=== PATIENT | female | born 1985 | race Caucasian/White ===

== ENCOUNTER 2016-07-15 05:59 | Day surgery (SDC) | payer MEDICAID ==
[~2016-07-15] VITALS: Ht 157.5 cm; Wt 59.0 kg
[2016-07-15] VITALS (10 sets, daily range): BP systolic 84–104; BP diastolic 43–57; PULSE 68–89; RESP 14–18; TEMP 98.3; Ht 157.5 cm; Wt 59.0 kg
[2016-07-15] MEDS ORDERED: CEFAZOLIN 1 GM INJ ONE (07:00)
[2016-07-15] MEDS ORDERED: ROCURONIUM 50 MG INJ ONE (07:00)
[2016-07-15 07:38] LABS: ADD UMIC YES; URINE BILIRUBIN (Dip) NEGATIVE (NEGATIVE); URINE BLOOD (Dip) 2+ (NEGATIVE); URINE COLOR LT. YELLOW (YELLOW); URINE GLUCOSE (Dip) NEGATIVE (NEGATIVE); URINE KETONES (Dip) NEGATIVE (NEGATIVE); URINE LEUKOCYTE ESTERASE (Dip) NEGATIVE (NEGATIVE); URINE NITRITE (Dip) NEGATIVE (NEGATIVE); URINE TOTAL PROTEIN (Dip) TRACE (NEGATIVE); URINE UROBILINOGEN (Dip) 0.2 E.U./dL (0.1-1.0)
[2016-07-15 07:48] LABS: ALBUMIN 4.6 g/dl (3.3-4.9)
[2016-07-15 07:49] LABS: POTASSIUM 4.1 mmol/L (3.5-5.1)
[2016-07-15 07:51] LABS: ALBUMIN/GLOBULIN RATIO 1.09; BASOPHILS % 0.4 % (0.0-2.0); BILIRUBIN,INDIRECT 0.6 mg/dl (0-1.1); BILIRUBIN,TOTAL 0.6 mg/dl (0.2-1.3); CREATININE 0.51 mg/dl (0.44-1.00); EOSINOPHILS % 0.4 % (0.0-7.0); HEMATOCRIT 40.7 % (37.0-47.0); HEMOGLOBIN 13.9 g/dl (12.0-16.0); LYMPHOCYTES # 1.8 10^3/ul (0.8-2.9); LYMPHOCYTES % 16.4 % (15.0-51.0); MEAN CORPUSCULAR HEMOGLOBIN 30.8 pg (29.0-33.0); MEAN CORPUSCULAR HGB CONC 34.2 g/dl (32.0-37.0); MEAN PLATELET VOLUME 8.6 fl (7.4-10.4); MONOCYTE # 0.4 10^3/ul (0.3-0.9); MONOCYTES % 4.1 % (0.0-11.0); NEUTROPHIL # 8.6 10^3/ul (1.6-7.5); NEUTROPHILS % 78.7 % (39.0-77.0); PLATELET COUNT 329 10^3/UL (140-440); RED BLOOD COUNT 4.51 10^6/ul (4.20-5.40); RED CELL DISTRIBUTION WIDTH 13.1 % (11.5-14.5); TOTAL PROTEIN 8.8 g/dl (6.1-8.1)
[2016-07-15 07:52] LABS: CALCIUM 9.3 mg/dl (8.4-10.2); CONDITION 1
[2016-07-15 08:00] LABS: BACTERIA,URINE RARE; URINE RBCS 0-2 /HPF (0)
--- NOTE | 2016-07-15 10:26 | RADRPT ---
PROCEDURE: US Obstetrical 1st Trimester CLINICAL INDICATION: Vaginal bleeding TECHNIQUE: Multiple real-time images were acquired of the patient's maternal abdomen utilizing a curved array transducer. COMPARISON: None FINDINGS: The uterus is normal in size and measures 8.6 cm in sagittal diameter and 5.8 x 5.3 cm in cross diam eter. A 1 cm Nabothian cyst is evident. There is thickening of the endometrium to approximately 3.7 cm. There is an eccentric tiny cyst wit hin the endometrium measuring approximate 2.3 mm in cross diameter. The right ovary measures 2.5 x 2.0 x 1.8 cm. Vascular flow is demonstrated within the right ovary o n Doppler. The left ovary measures 3.7 x 1.7 x 1.6 cm. Vascular flow is demonstrated in the left ovary and Dop pler. Adjacent to the left ovary there is a 1.8 x 1.3 x 1.1 cm There is a trace of free intraperitoneal fluid. IMPRESSION: 1. The uterus is normal in size and the endometrium is quite thickened measuring approximately 3.7 c m in cross diameter. There is a tiny 2.3 mm cyst seen at the edge of the endometrium. 2. Normal-appearing right ovary with vascular flow demonstrated on Doppler. 3. Normal left ovary with vascular flow demonstrated on Doppler. 4. There is a small mass-like structure is seen adjacent to the left ovary measuring 1.8 x 1.3 x 1. 1 cm. 5. There is a trace of free intraperitoneal fluid. 6. Correlation with quantitative serial beta HCG and repeat sonogram in 10 days might be useful to further evaluate as an ectopic cannot be excluded. Findings of possible ectopic were telephoned by William Rod MD to ANNAMARIE Huff on 07/15/2016 at 1025 hours. Physician Isaac Date Time Electronically viewed and signed by Physician Isaac on 07/15/2016 10:25 RH/
--- NOTE | 2016-07-15 10:47 | EN ---
Date/Time of Note Date/Time of Note DATE: 07/15/16 TIME: 10:46 ER Progress Note Case was discussed in detail with the advanced practice provider. Patient was seen independently Diagnostic assessment reviewed. I agree with the assessment and care plan as discussed. MANJINDER STONE Jul 15, 2016 10:47
--- NOTE | 2016-07-15 11:32 | ERD ---
DATE OF SERVICE: 07/15/2016 HISTORY OF PRESENT ILLNESS: The patient is a 31-year-old female coming in complaining of left lower quadrant pain. Patient states it has been going on for 2 days. She took ibuprofen with mild allev iation. She states the pain comes and goes; however, this morning, it felt much worse. She has had no pain with urination or bowel movements. Her last bowel movement was at 5:00 a.m., 6 hours prior to evaluation. She has had no blood and no diarrhea. She is nauseous, but no vomiting. Her last n ormal menstrual period was 06/03/2017. She says the pain is nonradiating and rates it as a 7 out of 10. PAST MEDICAL HISTORY: Denies medical problems. ALLERGIES: DENIES ALLERGIES TO MEDICATIONS. SURGICAL HISTORY: Tubal ligation that was reversed. SOCIAL HISTORY: Denies. REVIEW OF SYSTEMS: A 12-point review of systems was done. Refer to HPI for positives, all other sy stems negative. PHYSICAL EXAMINATION VITAL SIGNS: Temperature is 98.5, pulse 77, blood pressure is 107/60, respiratory rate 18, O2 satur ation 100% on room air. Pain intensity is 7/10. GENERAL: The patient is well-appearing, well-nourished, no acute distress. HEENT: Atraumatic. Conjunctivae are pink. Pupils equal, round, and reactive to light. There is no sc leral icterus. Tympanic membranes clear bilaterally. Oropharynx clear. No nystagmus or photophobia. CHEST: Clear to auscultation bilaterally. There are no rales, wheezes or rhonchi. HEART: Regular rate and rhythm. No murmurs, clicks, rubs or gallops. No S3 or S4. ABDOMEN: Normoactive bowel sounds heard on auscultation. No distention or organomegaly. Patient esquivel s mild tenderness to palpation in the left lower quadrant with mild rebound tenderness. SKIN: There is no apparent rash or petechia. The skin is warm and dry. EMERGENCY ROOM COURSE: The patient had blood work done in the ER. CBC was within normal limits. C MP was within normal limits. Beta quant was 1747. Urine was within normal limits. Patient's blood type is O positive. Obstetric ultrasound showed: 1. Uterus is normal and endometrium is thickened, measuring approximately 3.7 cm in cross diameter. 2. A tiny 2.3 mm cyst in the endometrium. 3. Normal appearing right ovary with vascular flow demonstrated on Doppler. 4. Normal left ovary with vascular flow. 5. Small mass-like structure seen adjacent to the left ovary measuring 1.3 x 1.8 x 1.1 cm. 6. There is a trace of free intraperitoneal fluid. 7. Correlation and quantitative. serial beta hCG and repeat sonogram in 10 days may be useful to fu rther evaluate if ectopic cannot be evaluated. This case was then discussed with the laborist, Dr. Chavez, who came and evaluated the patient at the bedside. The patient was given the option since this was desired to either have surge ry for removal of possible ectopic today or to be admitted for observation and have serial beta hCG and ultrasounds done in the hospital to rule out a possible ectopic. The patient decided t o be admitted for observation and will be under the care of Dr. Chavez for close followup and reev aluation. DIAGNOSES 1. Positive test. 2. Possible ectopic . 3. Left lower quadrant pain. MEDICAL DECISION MAKING: Patient does have pain in the left lower quadrant with a positive pregnanc y test, no obvious seen on vaginal ultrasound. The patient does have a concerning structu re noted within the left adnexa. She will be admitted for observation and close evaluation to ensur e that patient does not have ectopic . The patient was stable at the time of reevaluation and understood the reason for admission. DISPOSITION: Admission to med/surg floor under the care of Dr. Chavez's service for serial hCGs a nd ultrasound. Patient was stable upon transfer. Dictated By: ALL DE LUNA for MANJINDER MUSTAFA/ARNAUD Conf#: [id number] DID#: [id number]
--- NOTE | 2016-07-15 11:42 | ERD ---
DATE OF SERVICE: 07/15/[address] Chavez reevaluated the patient's ultrasound and felt that there was higher concern for an ecto pic . He recommended patient to have OR intervention today to remove ectopic . T his was discussed at bedside with patient. We discussed the risks versus benefits of waiting versus surgical intervention today. Patient decided to have surgery. This was discussed with the surgeon at this patient's bedside. Patient understood and will be admitted to the OR directly from the [facility] r[facility] room. Patient was stable. Dictated By: ALL DE LUNA for MANJINDER MUSTAFA/NTS Conf#: [id number] DID#: [id number]
[2016-07-15] MEDS ORDERED: FENTAnyl 50 MCG/ML VIAL IV PRN ×2 (13:30)
[2016-07-15] MEDS ORDERED: hydrALAzine 20 MG INJ IV PRN (13:30)
[2016-07-15] MEDS ORDERED: EPHEDrine SULFATE 50 MG/5 ML SYG IV PRN (13:30)
[2016-07-15] MEDS ORDERED: LABETALOL HCL 20MG INJ IV PRN (13:30)
[2016-07-15] MEDS ORDERED: MEPERIDINE 25 MG INJ IV PRN (13:30)
[2016-07-15] MEDS ORDERED: HYDROmorphONE (0.2 MG/ML) 10ML SYG IV PRN ×3 (13:30)
[2016-07-15] MEDS ORDERED: ONDANSETRON 4 MG INJ IV PRN (13:30)
[2016-07-15] MEDS ORDERED: PROPOFOL 100 ML ONE (13:36)
[2016-07-15] MEDS ORDERED: FENTAnyl 50 MCG/ML VIAL ONE ×2 (13:40→13:49)
[2016-07-15] MEDS ORDERED: ACETAMINOPHEN 1000MG/100ML IV 100 ML ONE (14:00)
[2016-07-15] MEDS ORDERED: DEXAMETHASONE 4 MG/ML 1 ML INJ ONE (14:11)
[2016-07-15] MEDS ORDERED: NEOSTIGMINE 3 MG/3 ML SYRINGE ONE (14:28)
[2016-07-15] MEDS ORDERED: GLYCOPYRROLATE 0.4 MG INJ ONE (14:28)
[2016-07-15] MEDS ORDERED: KETOROLAC 30 MG INJ ONE (14:33)
[2016-07-15] MEDS ORDERED: ONDANSETRON 4 MG INJ ONE (14:34)
[2016-07-15] MEDS: FENTAnyl 50 MCG/ML VIAL IV PRN ×2 (14:54→15:12)
[2016-07-15] MEDS ORDERED: IBUPROFEN 600 MG TAB GTB PRN (15:00)
--- NOTE | 2016-07-15 16:45 | OPR ---
DATE OF OPERATION: 07/15/2016 POSTOPERATIVE DIAGNOSIS: Ruptured ectopic . PREOPERATIVE DIAGNOSIS: Left fallopian tube ectopic . POSTOPERATIVE DIAGNOSIS: Ruptured ectopic . OPERATION PERFORMED: Laparoscopic left salpingectomy, removal of ectopic and dilatation a nd curettage and suction. SURGEON: Jass Chavez MD. ANESTHESIOLOGIST: Dr. Holm. TYPE OF ANESTHESIA: General. COMPLICATIONS: None. ESTIMATED BLOOD LOSS: Less than 5-10 mL. DESCRIPTION OF PROCEDURE: The patient was taken to the operating room where general anesthesia was found to be adequate. The patient was placed in dorsal lithotomy position and after prep and drape, a weighted speculum was placed inside the vaginal vault. Anterior lip of the cervix was grasped by single-tooth tenaculum. Cervix was dilated by Knowles dilators. Suction tip size 7 was inserted. I ntrauterine cavity was suctioned and endometrial tissue was sent to pathology. Sharp curettage of e ndometrial cavity was done. Then, HUMI was inserted in place. Then attention was turned to abdomin al field. A 1 cm incision was made at umbilicus using a camera. First trocar was inserted under di rect visualization of the camera. Intra-abdominal cavity was filled up using 4 liters of CO2. Seco nd incision was made on the right thigh with a 12 mm trocar under direct visualization of the camera . An incision was done on the left side 10 cm from the umbilical incision. The third trocar was in serted under direct visualization of the camera. Left ectopic was identified and it was r uptured. There was around 3 to 5 mL cystic clots inside the cul-de-sac. A left salpingectomy was d one and the ectopic was removed toward the Endobag and through the right side of the incis ion. Copious irrigation of abdominal and pelvic cavity was done. Pictures taken and instruments we re removed under direct visualization of the camera. Gas was removed and then right incision was cl osed at the fascia using #0 Vicryl sutures and 3-0 Monocryl was used to close all 3 skin incisions. Dermabond was placed on top of the incision. Patient tolerated the procedure well and was transfer red to recovery room in stable condition. There was no complication regarding this surgery. Dictated By: JASS VILLANUEVA/ARNAUD Conf#: [id number] DID#: [id number]
--- NOTE | 2016-07-15 17:03 | HP ---
DATE OF ADMISSION: 07/15/2016 HISTORY OF PRESENT ILLNESS: This is a 31-year-old 3, para 2 at 4 to 5 weeks gestational a ge, admitted through the emergency room because is suspected diagnosis of ectopic. The patient admi tted for abdominal pain. PAST MEDICAL HISTORY: Denies. PAST SURGICAL HISTORY: Mini laparotomy and bilateral tubal ligation. ALLERGIES: NKDA. PHYSICAL EXAMINATION: VITAL SIGNS: Stable. GENERAL: Normal. ABDOMEN: Patient had left lower quadrant tenderness and rebound and guarding. Genital exam, no blo od in the vaginal vault. Ultrasound showed a suspected left ectopic in the left tube, thi ck endometrium. The patient was consented for D and C and suction and laparoscopic left salpingect fritz and removal of ectopic . The risks and benefits discussed. Alternatives including obs ervation in the hospital were discussed with the patient and patient agreed to a laparoscopic left s alpingectomy and removal of ectopic and D and C and suction. The patient signed the conse nt and was taken to the operating room. Dictated By: RADHA VILLANUEVA/ARNAUD Conf#: [id number] DID#: [id number]
== END 2016-07-15 18:35 | disposition home or self-care (01) ==
LOC: FTE 05:59 → SDS 12:58 → MS2 15:40 → SDS 18:35
PROVIDERS: ATTEND Obstetrics & Gynecology
DX: O00.10 Tubal pregnancy without intrauterine pregnancy (principal)
CPT/HCPCS: 36415; 58120; 59151; 76801; 76817; 80053; 81001; 83690; 84702; 85025; 86900; 86901; 88305; J0131; J0690; J1100; J2175; J2405; J2710; J3010; Z7502; Z7512; Z7610; 81003; J1885